=== PATIENT | male | born 1955 | race Caucasian/White ===

== ENCOUNTER 2021-01-28 07:26 | Emergency (ER) | payer MEDICARE, OTHER ==
[~2021-01-28] VITALS: Ht 188 cm; Wt 90.7 kg
--- NOTE | 2021-01-28 07:33 | NUR ---
PT AMBUILATORY TO ER BED 3 C/O L EYE PAIN AND SWELLING SINCE LAST NIGHT. PT UNABLE TO OPEN HIS LEFT EYE. STATES GOT WORST AFTER GETTING A FACIAL MASSAGE. PT ALSO ENDORSES THAT HE WAS PRESCRIBE W/ ANTIBIOTICS BY PMD FOR A SINUS INFECTION. PLACED ON MONITOR. STABLE VITALS. AWAITING MD KIRK.
--- NOTE | 2021-01-28 07:37 | NUR ---
DR MCKEON AT BEDSIDE FOR EVAL.
--- NOTE | 2021-01-28 07:50 | NUR ---
IV LINE STARTED BLOOD DRAWN AND SENT TO LAB.
[2021-01-28 07:54] LABS: BASOPHILS % (AUTO) 0.2 % (0.0-2.0); EOSINOPHILS % (AUTO) 0.1 % (0.0-6.0); HEMATOCRIT 43 % (39-51); HEMOGLOBIN 14.1 g/dL (13.5-17.5); LYMPHOCYTES # (AUTO) 2.3 K/uL (0.8-4.8); LYMPHOCYTES % (AUTO) 15.5 % (20.0-44.0); MEAN CORPUSCULAR HGB CONC 33 g/dl (31.0-36.0); MEAN CORPUSCULAR VOLUME 91 fL (80-96); MONOCYTES # (AUTO) 0.8 K/uL (0.1-1.30); MONOCYTES % (AUTO) 5.7 % (2.0-12.0); NEUTROPHILS # (AUTO) 11.6 K/uL (1.8-8.9); NEUTROPHILS % (AUTO) 78.5 % (43.0-81.0); PLATELET COUNT (AUTO) 193 K/uL (150-450); RED BLOOD CELL COUNT(AUTO) 4.71 MIL/uL (4.5-6.0); WHITE BLOOD COUNT (AUTO) 14.7 K/uL (4.3-11.0)
[2021-01-28 08:02] LABS: CALCIUM, SERUM 8.9 mg/dL (8.5-10.1); CREATININE 1.2 mg/dL (0.6-1.3); POTASSIUM 3.4 mmol/L (3.5-5.1)
[2021-01-28] MEDS ORDERED: IOHEXOL-300 100 ML VIAL IV ONE ×3 (08:19→09:43)
[2021-01-28] MEDS ORDERED: IV NS 0.9% 250 ML IV ONE ×2 (08:20→09:25)
[2021-01-28] MEDS ORDERED: CEFTRIAXONE 1GM BAG (ER ONLY) 50 ML IV ONE (08:50)
[2021-01-28] MEDS: CEFTRIAXONE 1GM BAG (ER ONLY) 1 GM/50 ML PIGGYBACK IV ONE (08:56)
--- NOTE | 2021-01-28 09:25 | NUR ---
PATIENT TRANSFERRED TO RADIOLOGY FOR CT.
--- NOTE | 2021-01-28 10:19 | NUR ---
CALLED [facility] FOR HIGHER LEVEL OF CARE OPTHOMOLOGY/ENT. AT THE MOMENT NO BED CAPACITY BUT STILL WANT CLINICAL INFORMATION.
--- NOTE | 2021-01-28 10:41 | NUR ---
FAXED CLINICALS TO [facility].
--- NOTE | 2021-01-28 10:41 | NUR ---
COVID SWAB SENT. PATIENT ABLE TO AMBULATE TO RESTROOM. UNABLE TO SEE ON LEFT EYE.
--- NOTE | 2021-01-28 10:42 | NUR ---
[facility]ED [facility]. SPOKE TO RACHAEL AND THEY ARE AT CAPACITY FOR TRANSFERS.
--- NOTE | 2021-01-28 10:58 | NUR ---
CALLED [facility] FOR HIGHER LEVEL. FAXED CLINICAL INFORMATION TO [facility].
--- NOTE | 2021-01-28 11:06 | NUR ---
CALLED [facility] FOR HIGHER LEVEL OF CARE. SPOKE TO ZEINA AND REQUESTED CLINICALS INFO. FAXED CLINICALS.
[2021-01-28] MEDS ORDERED: PANT40TA49 PO (11:11)
[2021-01-28] MEDS ORDERED: AMLO2.5T4 PO (11:11)
[2021-01-28] MEDS ORDERED: LEVO750T46 PO (11:11)
[2021-01-28] MEDS ORDERED: METH4TAB16 PO (11:11)
[2021-01-28] MEDS ORDERED: ALBU18HF2 IH (11:11)
--- NOTE | 2021-01-28 11:18 | NUR ---
CALLED [facility]EL [facility] CARE. SPOKE TO JAMES AND [facility] IS AT CAPACITY. ADVISES US T0 TRY AGAIN IN 8-12 HOURS.
--- NOTE | 2021-01-28 11:33 | NUR ---
FAXED CLINICALS TO [facility] FOR HIGHER LEVEL OF CARE.
--- NOTE | 2021-01-28 11:56 | NUR ---
RECEIVED A CALL FROM [facility]. PT ACCEPTED FOR ER TO ER UNDER THE CARE OF DR. RUBIO. WE WILL SCHEDULE AMBULANCE TO SEND PATIENT TO [facility] AND CALL TRANSFER CENTER AFTER RECIEVING AMBULANCE ETA FOR NURSE TO NURSE REPORT.
--- NOTE | 2021-01-28 12:04 | NUR ---
CALLED [facility] FOR TRANSFER TO [facility]. ETA 45-60 MINUTES.
--- NOTE | 2021-01-28 12:16 | NUR ---
REPORT GIVEN TO GHANSHYAM HOWARD IN [facility] ED.
[2021-01-28 12:24] VITALS: BP 148/67
--- NOTE | 2021-01-28 12:49 | NUR ---
REPORT GIVEN TO STEREOTYPE MOLDER, ALL PAPERWORKS GIVEN TO STEREOTYPE MOLDER. PATIENT A/OX4, BREATHING EVEN AND UNLABORED, NO SOB NOTED. PATIENT TRANSFERRED TO [place] [facility] IN STABLE CONDITION. PATIENT LEFT HIS WHITE GILBERT LORENZO IN THE VISITOR PARKING LOT, SECURITY MADE AWARE.
== END 2021-01-28 12:51 | disposition short-term general hospital (02) ==
LOC: ER 07:34
DX: J34.1 Cyst and mucocele of nose and nasal sinus (principal); H05.012 Cellulitis of left orbit; H05.20 Unspecified exophthalmos; Z20.822 Contact with and (suspected) exposure to COVID-19
CPT/HCPCS: 36415; 70481; 80048; 85025; 87426; 96365; 99291; J0696; J7050 ×2; Q9967 ×2; C9803